=== PATIENT | male | born 1985 ===

== ENCOUNTER 2018-05-30 00:55 | Emergency (ER) | payer SELFPAY | END 2018-05-30 01:42 | disposition home or self-care (01) | LOC: C.ER 00:55 ==

== ENCOUNTER 2018-06-01 19:18 | Emergency (ER) | payer SELFPAY ==
[2018-06-01 19:42] VITALS: BP 118/79; PULSE 89; RESP 20; TEMP 97.6; O2SAT 100
[2018-06-01] MEDS ORDERED: Tetracaine 0.5% Ophth (OR ONLY) ONE (19:45)
[2018-06-01] MEDS ORDERED: Fluorescein 1 mg Ophthalmic Strip ONE ×2 (19:45→20:00)
--- NOTE | 2018-06-01 20:13 | C.PDOC ---
History Of Present Illness 33 year old male presents to the ED for evaluation of a persistent left eye pain with sensation of foreign body. Patient was evaluated in the ED on 05/30 and had a small foreign body removed from the 4 o'clock position of his left eye. Patient denies changes in vision, discharge. Time Seen by Provider: 06/01/18 19:41 Chief Complaint (Nursing): Eye Problem History Per: Patient History/Exam Limitations: no limitations Onset/Duration Of Symptoms: Days, Persistent Current Symptoms Are (Timing): Still Present Quality: "Pain" Associated Symptoms: Pain, FB Sensation. denies: Decreased Vision, Discharge From Eye Additional History Per: Patient Past Medical History Reviewed: Historical Data, Nursing Documentation, Vital Signs Vital Signs: Last Vital Signs Temp 97.6 F 06/01/18 19:37 Pulse 89 06/01/18 19:37 Resp 20 06/01/18 19:37 BP 118/79 06/01/18 19:37 Pulse Ox 100 06/01/18 19:37 - Medical History PMH: No Chronic Diseases Surgical History: No Surg Hx Family History: States: Unknown Family Hx - Social History Hx Alcohol Use: Yes Hx Substance Use: Yes Review Of Systems Eyes: Positive for: Pain (left, with persistent foreign body sensation ). Negative for: Vision Change Physical Exam - Physical Exam Appears: Non-toxic, No Acute Distress Skin: Normal Color, Warm, Dry Head: Atraumatic, Normacephalic Eye(s): bilateral: Other (fluorescine stained: small foreign body embedded in 7 o'clock position ), right: Normal Inspection Extremity: Normal ROM Neurological/Psych: Oriented x3, Normal Speech, Normal Cognition ED Course And Treatment O2 Sat by Pulse Oximetry: 100 (on RA) Pulse Ox Interpretation: Normal Medical Decision Making Medical Decision Making: FB to L eye `05/30 removed from 4 o'clock position remaining FB @ 7 o'clock position now removed but ? if completely removed continue opt abx drops opt f/u with Dr. Palacios- Optho Outside Repairer Special Disposition Doctor Will See Patient In The: Office Counseled Patient/Family Regarding: Studies Performed, Diagnosis - Disposition Referrals: Thaddeus Palacios MD [Staff Provider] - Disposition: HOME/ ROUTINE Disposition Time: 20:13 Condition: GOOD Additional Instructions: sigue las gotas antibioticos Ibuprofeno 400-600 mg cada 6 horas pilar necessario [place] para hacer tameka con Dr. Palacios- Opthalmolog[facility] [place]. Instructions: Foreign Body in Eye Forms: [facility] (Frisian), Work Excuse Print Language: YAKUT - Clinical Impression Clinical Impression: Foreign body, eye - Scribe Statement The provider has reviewed the documentation as recorded by the Scribe (Tigist Santana) Provider Attestation: All medical record entries made by the Scribe were at my direction and personally dictated by me. I have reviewed the chart and agree that the record accurately reflects my personal performance of the history, physical exam, medical decision making, and the department course for this patient. I have also personally directed, reviewed, and agree with the discharge instructions and disposition. Procedures - FB Removal Eye Left Location: Left Eye Topical Anesthetic Used: Tetracaine Foreign Body Material: Metal Evidence of Corneal Penetration: No Technique: Cotton Tip Swab, Needle Procedure Performed Under: Direct Visualization w/Magnification Patient tolerated procedure: No Complications Complications: Incomplete FB Removal (able to remove most of visualized foreign body)
== END 2018-06-01 20:25 | disposition home or self-care (01) ==
LOC: C.ER 19:18
DX: T15.92XA Foreign body on external eye, part unspecified, left eye, initial encounter (principal); X58.XXXA Exposure to other specified factors, initial encounter